=== PATIENT | female | born 1995 | race Hispanic/Latino ===

== ENCOUNTER 2016-09-20 23:59 | Observation (INO) | payer BC, OTHER ==
[2016-09-21 00:10] VITALS: TEMP 98.2
[2016-09-21] MEDS ORDERED: Sodium Chloride 0.9% 1,000 ML IV STA (00:43)
[2016-09-21 01:33] LABS: BASO % 0.3 % (0.0-2.0); EOS # 0.2 K/uL (0.0-0.7); EOS % 1.4 % (0.0-4.0); HEMATOCRIT 37.6 % (34.0-47.0); LYMPH # 2.1 K/uL (1.0-4.3); MEAN CELL VOLUME 73.6 fl (81.0-99.0); MEAN CORPUSCULAR HEMOGLOBIN 23.2 pg (27.0-31.0); MEAN CORPUSCULAR HGB CONC 31.5 g/dL (33.0-37.0); MEAN PLATELET VOLUME 8.4 fl (7.2-11.7); MONO # 0.6 K/uL (0.0-0.8); MONO % 4.1 % (0.0-10.0); NEUT # 12.2 K/uL (1.8-7.0); NEUT % 80.2 % (50.0-75.0); RED CELL DISTRIBUTION WIDTH 17.2 % (11.5-14.5); WHITE BLOOD COUNT 15.2 K/uL (4.8-10.8)
[2016-09-21 01:35] LABS: RBC URINE 1 /hpf (0-3); URINE BILIRUBIN NEGATIVE (NEGATIVE); URINE BLOOD NEGATIVE (NEGATIVE); URINE COLOR YELLOW (YELLOW); URINE GLUCOSE (UA) NEG (Normal); URINE KETONE TRACE mg/dL (NEGATIVE); URINE LEUKOCYTE ESTERASE NEG Leu/uL (Negative); URINE PROTEIN NEGATIVE (NEGATIVE); URINE UROBILINOGEN 0.2-1.0 mg/dL (0.2-1.0); WBC URINE < 1 /hpf (0-5)
[2016-09-21 01:44] LABS: ALB/GLOB RATIO 1.1 (1.0-2.1); ALKALINE PHOSPHATASE 66 U/L (38-126); ALT/SGPT 27 U/L (9-52); AST/SGOT 44 U/L (14-36); BILIRUBIN,TOTAL 0.9 mg/dl (0.2-1.3); BLOOD UREA NITROGEN 9 mg/dl (7-17); CALCIUM 9.2 mg/dL (8.4-10.2); CARBON DIOXIDE 21 mmol/L (22-30); CHLORIDE 104 mmol/L (98-107); GFR AFRICAN-AMERICAN > 60; GLUCOSE,RANDOM 89 mg/dL (65-105); LIPASE 117 U/L (23-300); SODIUM 138 mmol/l (132-148)
[2016-09-21 01:53] LABS: POTASSIUM 4.6 MMOL/L (3.6-5.0)
--- NOTE | 2016-09-21 02:10 | ED PDOC ---
HPI: General Adult Time Seen by Provider: 09/21/16 00:21 Chief Complaint (Nursing): Abdominal Pain Chief Complaint (Provider): abdominal pain, shortness of breath History Per: Patient History/Exam Limitations: no limitations Onset/Duration Of Symptoms: Hrs Current Symptoms Are (Timing): Still Present Additional History Per: Patient Additional Complaint(s): 20 y/o female history of ankylosing spondylitis, arthritis (rheumatoid?) presents for eval of abdominal pain x 4 hours. Associated "constipation", which patient describes as having multiple bowel movements of a small amount of "loose" stool. Patient notes 3 episodes of vomiting after onset of abdominal pain, with associated shortness of breath. Denies fever, chest pain, palpitations, dysuria, hematuria, vaginal bleeding/discharge, recent travel, sick contacts. Past Medical History Reviewed: Historical Data, Nursing Documentation, Vital Signs Vital Signs: Last Vital Signs Temp 98.2 F 09/21/16 00:07 Pulse 124 H 09/21/16 00:07 Resp 16 09/21/16 00:07 BP 131/81 09/21/16 00:07 Pulse Ox 100 09/21/16 03:39 - Medical History PMH: Anxiety, Arthritis - Surgical History Surgical History: No Surg Hx - Family History Family History: States: Unknown Family Hx - Living Arrangements Living Arrangements: Alone - Social History Current smoker - smoking cessation education provided: No Alcohol: Occasional Drugs: Denies - Home Medications Home Medications: Ambulatory Orders Medication Instructions Recorded Sertraline HCl [Zoloft] 25 mg PO DAILY 08/23/14 - Allergies Allergies/Adverse Reactions: Allergies Allergy/AdvReac Type Severity Reaction Status Date / Time No Known Allergies Allergy Verified 09/21/16 00:07 Review of Systems ROS Statement: Except As Marked, All Systems Reviewed And Found Negative Respiratory: Positive for: Shortness of Breath Gastrointestinal: Positive for: Nausea, Vomiting, Abdominal Pain Physical Exam - Reviewed Nursing Documentation Reviewed: Yes Vital Signs Reviewed: Yes - Physical Exam Appears: Positive for: Well, Non-toxic, No Acute Distress Head Exam: Positive for: ATRAUMATIC, NORMAL INSPECTION, NORMOCEPHALIC Skin: Positive for: Normal Color Eye Exam: Positive for: Normal appearance ENT: Positive for: Normal ENT Inspection Cardiovascular/Chest: Positive for: Regular Rate, Rhythm Respiratory: Positive for: Normal Breath Sounds Gastrointestinal/Abdominal: Positive for: Tenderness (epigastric) Back: Positive for: Normal Inspection Extremity: Positive for: Normal ROM Neurologic/Psych: Positive for: Alert, Oriented - Laboratory Results Result Diagrams: 09/21/16 01:19 09/21/16 02:32 - ECG ECG: Positive for: Viewed By Me (reviewed by ED attending) ECG Rhythm: Positive for: Sinus Tachycardia O2 Sat by Pulse Oximetry: 100 - Other Rad obstructive series X-Ray: Viewed By Me X-Ray Interpretation: + stool. nonspecific bowel/gas pattern - Progress ED Course And Treament: labs, urine, IV fluids, IV pepcid, IV zofran, obstructive series ED OBSERVATION Date of observation admission: 09/21/16 Time of observation admission: 03:00 - Observation admission statement Patient is being placed in observation because:: abdominal pain, vomiting - Goals of Observation Goals of observation are:: obtain labs, xray, re-eval - Progress Note Progress Note: 09/21/16 03:30 On re-eval, patient notes little improvement with pain. CT abd/pelvis ordered 09/21/16 05:30 Patient resting comfortably; awaiting CT scan Disposition - Clinical Impression Clinical Impression: Abdominal pain - Disposition Disposition: Transfer of Care Disposition Time: 06:00 Condition: STABLE Patient Signed Over To: Mark Palomino Handoff Comments: pending CT
[2016-09-21 03:02] LABS: CHLORIDE 108 mmol/L (98-107); SODIUM 140 mmol/l (132-148)
[2016-09-21 03:03] LABS: POTASSIUM 3.7 MMOL/L (3.6-5.0)
[2016-09-21 03:05] LABS: ALKALINE PHOSPHATASE 70 U/L (38-126); ALT/SGPT 28 U/L (9-52); AST/SGOT 21 U/L (14-36); BILIRUBIN,TOTAL 0.7 mg/dl (0.2-1.3); BLOOD UREA NITROGEN 8 mg/dl (7-17); CARBON DIOXIDE 19 mmol/L (22-30); GFR AFRICAN-AMERICAN > 60; GLUCOSE,RANDOM 81 mg/dL (65-105); TOTAL PROTEIN 8.6 G/DL (6.3-8.2)
[2016-09-21 03:06] LABS: CALCIUM 9.4 mg/dL (8.4-10.2)
[2016-09-21 03:09] LABS: ALB/GLOB RATIO 1.2 (1.0-2.1)
[2016-09-21 03:22] LABS: PARTIAL THROMBOPLASTIN TIME 28.6 SECONDS (23.3-32.5)
[2016-09-21] MEDS ORDERED: Iohexol 240 (50 ml) PO ONE (03:35)
[2016-09-21] MEDS ORDERED: Iohexol 240 (50 ml) ONE (04:27)
--- NOTE | 2016-09-21 05:50 | ED PDOC ---
- Laboratory Results Result Diagrams: 09/21/16 01:19 09/21/16 02:32 - ECG O2 Sat by Pulse Oximetry: 100 Medical Decision Making Medical Decision Making: Patient s/o from [facility] at [address] Patient s/o to Dr. Ndiaye at [address] Scribe Attestation: Documented by Jennifer Perea acting as a scribe for Mark Palomino MD. Provider Scribe Attestation: All medical record entries made by the Scribe were at my direction and personally dictated by me. I have reviewed the chart and agree that the record accurately reflects my personal performance of the history, physical exam, medical decision making, and the department course for this patient. I have also personally directed, reviewed, and agree with the discharge instructions and disposition. Disposition - Clinical Impression Clinical Impression: Abdominal pain, Dehydration, Vomiting - POA Present On Arrival: None - Disposition Disposition: Transfer of Care Disposition Time: 07:00 Condition: STABLE Patient Signed Over To: Colt Ndiaye III Handoff Comments: pending CT
[2016-09-21] MEDS ORDERED: Iodixanol 320 MG/ML 100 ML BOTTLE IV ONE (06:27)
[2016-09-21] MEDS ORDERED: Sodium Chloride 0.9% 50 ML IV ONE (06:27)
--- NOTE | 2016-09-21 07:05 | ED PDOC ---
"- Laboratory Results Result Diagrams: 09/21/16 01:19 09/21/16 02:32 - ECG O2 Sat by Pulse Oximetry: 100 Pulse Ox Interpretation: Normal Medical Decision Making Medical Decision Making: Time: 0700 Patient signed out by Dr. Palomino pending CT FINDINGS: ABDOMEN: Liver: Unremarkable. No mass. Gallbladder and bile ducts: Unremarkable. No calcified stones. No ductal dilation. Pancreas: Unremarkable. No mass. No ductal dilation. Spleen: The spleen is mildly prominent in size. There is no focal splenic lesion. Adrenals: Unremarkable. No mass. Kidneys and ureters: Unremarkable. No solid mass. No hydronephrosis. Stomach and bowel: Unremarkable. No obstruction. No mucosal thickening. Appendix: The appendix is not visualized with certainty. There is no kacy pericecal inflammation or or pericecal fluid collection to suggest appendicitis. (Please note that acute appendicitis cannot be completely excluded without the visualization of a normal appendix). PELVIS: KRUPA MARCANO | Preliminary Radiology Report MANUFACTURING SALES REPRESENTATIVE (QA) DISCREPANCY? If there is a discrepancy between the preliminary and final interpretation, please notify [facility] via [email or web address]. If you do not have access to our QA portal, call our QA team at [phone] CONFIDENTIALITY STATEMENT This report is intended only for the use of the referring physician, and only in accordance with law, If you received this in error, call [phone] Page 2 of 2 Bladder: The bladder is moderately distended. Reproductive: Unremarkable as visualized. ABDOMEN and PELVIS: Intraperitoneal space: Unremarkable. No free air. No significant fluid collection. Vasculature: Unremarkable. No abdominal aortic aneurysm. Lymph nodes: There are multiple small nonspecific lymph nodes in the mesenteric fat. IMPRESSION: 1. The bladder is moderately distended. 2. There are multiple small nonspecific lymph nodes in the mesenteric fat. This has indeterminate clinical significance and may represent mesenteric adenitis. 3. The spleen is mildly prominent in size. There is no focal splenic lesion. Thank you for allowing us to participate in the care of your patient. Dictated and Authenticated by: Truong Louie MD 09/21/2016 7:23 AM Eastern Time ([place] & [place]) Patient denies RLQ pain. Tachycardia has resolved. No vomiting, tolerating fluids. Pt wishes to go home. HAMZAH randall and magdalene. Return to ER for any development of pain, weakness, fever, return vomiting or any concern. Scribe Attestation: Documented by More Paredes acting as a scribe for Colt Ndiaye DO MD Scribe Attestation: All medical record entries made by the Scribe were at my direction and personally dictated by me. I have reviewed the chart and agree that the record accurately reflects my personal performance of the history, physical exam, medical decision making, and the department course for this patient. I have also personally directed, reviewed, and agree with the discharge instructions and disposition. Disposition Counseled Patient/Family Regarding: Studies Performed, Diagnosis, Need For Followup, Rx Given - Clinical Impression Clinical Impression: Abdominal pain, Dehydration, Vomiting - POA Present On Arrival: None - Disposition Disposition: Routine/Home Disposition Time: 07:27 Condition: STABLE"
[2016-09-21 07:57] VITALS: BP 129/66; PULSE 94; RESP 18
[2016-09-21 08:18] VITALS: O2SAT 100
--- NOTE | 2016-09-21 10:38 | RAD ---
PROCEDURE: Radiographs of the chest and abdomen (obstructive series) HISTORY: abd pain, bloating, sob COMPARISON: No prior. TECHNIQUE: AP radiograph of the chest, with upright and supine radiographs of the abdomen. FINDINGS: CHEST: Lungs: Clear. Cardiovascular: Normal size heart. No pulmonary vascular congestion. Pleura: No pleural fluid. No pneumothorax. Other findings: None. ABDOMEN AND PELVIS: Bowel: Unremarkable bowel gas pattern. No evidence of mechanical obstruction. Free air: None. Bones: Unremarkable. Other findings: None. IMPRESSION: Unremarkable radiographs of chest and abdomen. No evidence of mechanical bowel obstruction.
--- NOTE | 2016-09-21 11:30 | CT ---
PROCEDURE: CT Abdomen and Pelvis with contrast HISTORY: Abdominal pain, vomiting. COMPARISON: None. TECHNIQUE: Contrast dose: 95 cc Omnipaque 300. Radiation dose: Total exam DLP = 927.71 mGy-cm. This CT exam was performed using one or more of the following dose reduction techniques: Automated exposure control, adjustment of the mA and/or kV according to patient size, and/or use of iterative reconstruction technique. FINDINGS: LOWER THORAX: Unremarkable. LIVER: Hepatic steatosis. No focal masses. No intrahepatic bile duct dilatation or perihepatic ascites. GALLBLADDER AND BILE DUCTS: Unremarkable. PANCREAS: Unremarkable. No gross lesion or ductal dilatation. SPLEEN: Unremarkable. ADRENALS: Unremarkable. No mass. KIDNEYS AND URETERS: Unremarkable. No hydronephrosis. No solid mass. VASCULATURE: Unremarkable. No aortic aneurysm. BOWEL: Unremarkable. No obstruction. No gross mural thickening. APPENDIX: No abnormalities to suggest acute appendicitis. No right lower quadrant inflammatory processes identified. PERITONEUM: Unremarkable. No free fluid. No free air. LYMPH NODES: Unremarkable. No enlarged lymph nodes. BLADDER: Unremarkable. REPRODUCTIVE: Unremarkable. BONES: No acute fracture. OTHER FINDINGS: None. IMPRESSION: No acute findings related to/accounting for the clinical presentation. Additional benign and/or incidental findings described above. Concordant results (preliminary interpretation) provided by [facility]. Procedure Completed: 06:41. Preliminary ([facility]) Report: Dictated and Authenticated: 07:23. Final Interpretation: 11:29. September 21, 2016.
== END 2016-09-21 07:28 | disposition home or self-care (01) ==
LOC: H.ER 23:59 → H.EROBSV 09-21 03:00
PROVIDERS: ADMIT Emergency Medicine; ATTEND Emergency Medicine
DX: R10.9 Unspecified abdominal pain (principal); E86.0 Dehydration; R11.11 Vomiting without nausea
CPT/HCPCS: 74022; 74177; 80053; 81003; 81025; 83690; 84443; 84484; 85025; 85378; 85610; 85730; 96374; 96375; 99282; G0378; J2405; J7040; Q9966; Q9967

== ENCOUNTER 2018-01-03 17:23 | Emergency (ER) | payer BC, OTHER ==
[2018-01-03 17:37] VITALS: BP 130/85; TEMP 98.9; O2SAT 100
--- NOTE | 2018-01-03 19:57 | ED PDOC ---
HPI: General Adult Time Seen by Provider: 01/03/18 18:00 Chief Complaint (Nursing): Weakness/Neurological Deficit History Per: Patient, Other (Good (friend)) Additional Complaint(s): Pt. states today she an episode of "fogginess." States this occurred 3 times today. Reports that she's had similar symptoms in the past but has never been this severe. Pt. states she is conscious during these episodes but feel as if she cannot control her body. Describes it as feeling "stuck." States her eyes twitch very fast. Also states that symptoms resolve gradually and at this time symptoms are still present but have improved. As per his pt.'s friend (Good), he witnessed the event and states that pt. attempts to move but is unable. Also states pt. is able to answer questions appropriately and that pt. is conscious during this and pt. experiences no tonic clonic movements. Of note, pt. has a hx of anxiety and has been treated for anxiety in the past but is not currently on treatment. Also reports that she is currently being treated for ongoing dyspnea. 3 weeks ago she had an echocardiogram which was normal and yesterday she had a CXR but is uncertain of results. Pt. further reports she was given Humira for her ankylosing spondylitis for the first time yesterday. Denies hx of DVT or PE, hormonal therapy, prolonged limb immobilization, chest pain, headache, fever, weakness, SI/HI, hallucinations. Pt. reports no recent stressors. Of note, pt. states she has a hx of elevated HR. Past Medical History Reviewed: Historical Data, Nursing Documentation, Vital Signs Vital Signs: Last Vital Signs Temp 98.9 F 01/03/18 17:31 Pulse 112 H 01/03/18 18:06 Resp 19 01/03/18 18:06 BP 130/85 01/03/18 17:31 Pulse Ox 100 01/03/18 18:06 - Medical History PMH: Anxiety, Arthritis - Surgical History Surgical History: No Surg Hx - Family History Family History: States: No Known Family Hx - Home Medications Home Medications: Ambulatory Orders Medication Instructions Recorded Sertraline HCl [Zoloft] 25 mg PO DAILY 08/23/14 Dicyclomine [Dicyclomine HCl] 10 mg PO TID PRN #10 cap 09/21/16 Ondansetron [Zofran] 4 mg PO Q6H PRN #10 tab 09/21/16 traMADol [Ultram] 50 mg PO TID PRN #12 tab 09/21/16 - Allergies Allergies/Adverse Reactions: Allergies Allergy/AdvReac Type Severity Reaction Status Date / Time gluten AdvReac VOMITING Verified 01/03/18 17:31 Review of Systems ROS Statement: Except As Marked, All Systems Reviewed And Found Negative Cardiovascular: Positive for: Palpitations Respiratory: Positive for: Shortness of Breath Physical Exam - Reviewed Nursing Documentation Reviewed: Yes Vital Signs Reviewed: Yes - Physical Exam Appears: Positive for: Well, Non-toxic, No Acute Distress Head Exam: Positive for: ATRAUMATIC, NORMAL INSPECTION, NORMOCEPHALIC Skin: Positive for: Normal Color, Warm. Negative for: Rash Eye Exam: Positive for: EOMI, Normal appearance, PERRL ENT: Positive for: Normal ENT Inspection Neck: Positive for: Normal, Painless ROM Cardiovascular/Chest: Negative for: Murmur, Tachycardia, Irregularly Irregular Respiratory: Positive for: Normal Breath Sounds. Negative for: Respiratory Distress Gastrointestinal/Abdominal: Positive for: Normal Exam, Soft. Negative for: Tenderness Back: Positive for: Normal Inspection Extremity: Positive for: Normal ROM Neurologic/Psych: Positive for: Alert, Oriented (x3), Mood/Affect (appears anxious). Negative for: Aphasia, Facial Droop - ECG ECG: Positive for: Interpreted By Me ECG Rhythm: Positive for: Sinus Tachycardia. Negative for: ST/T Changes Rate: 118 O2 Sat by Pulse Oximetry: 100 - Radiology X-Ray: Interpreted by Me (CXR) - Progress ED Course And Treament: Labs, CT head w/o contrast, CXR, EKG ordered. Xanax 0.5mg PO ordered. Pt placed on emt intermediate. Disposition - Clinical Impression Clinical Impression: Tachycardia, Altered mental status - Patient ED Disposition Is Patient to be Admitted: Transfer of Care (Signed out to Karin PAN pending lab results, CT results, and disposition) - Disposition Disposition Time: 20:00 Condition: STABLE
--- NOTE | 2018-01-03 20:20 | ED PDOC ---
- Laboratory Results Result Diagrams: 01/03/18 19:40 01/03/18 19:40 Urine POC: Negative - ECG O2 Sat by Pulse Oximetry: 100 (RA) Pulse Ox Interpretation: Normal Medical Decision Making Medical Decision Making: Case endorsed to flex o writer operator, Karin PAN, at 1999 due to shift change. Pertinent details reviewed. Patient pending lab results, CT evaluation, and re-evaluation/ further disposition. CXR and EKG reviewed. Repeat HR: 118. Patient reports a history of tachycardia and her HR normally runs 95-140bpm. 2054 CT reviewed, radiology report follows EXAM: CT Head Without Intravenous Contrast EXAM DATE/TIME: 01/03/2018 6:51 PM CLINICAL HISTORY: 22 years old, female; Signs and symptoms; Altered mental status/memory loss; Other: Weakness; Additional info: AMS TECHNIQUE: Axial computed tomography images of the head/brain without intravenous contrast. All CT scans at this facility use at least one of these dose optimization techniques: automated exposure control; mA and/or kV adjustment per patient size (includes targeted exams where dose is matched to clinical indication); or iterative reconstruction. Coronal and sagittal reformatted images were created and reviewed. COMPARISON: No relevant prior studies available. FINDINGS: Brain: Minimal atrophy. No intracranial hemorrhage. No mass. No definite edema. Ventricles: No hydrocephalus. Bones/joints: No acute fracture. Sinuses: Small RIGHT sphenoid retention cyst. Mastoid air cells: No significant effusion. Orbits: Unremarkable as visualized. Soft tissues: Unremarkable. IMPRESSION: No definite acute intracranial abnormality. Thank you for allowing us to participate in the care of your patient. Dictated and Authenticated by: Chriss Zamora MD 01/03/2018 8:19 PM Eastern Time ([place] & [place]) Pending lab results. 2229 CBC and CMP grossly unremarkable. TSH: WNL D-Dimer: 379 Repeat HR: 106 Results discussed with patient. Risks and Benefits of CTA chest evaluation discussed with patient. 2319 Patient opted to follow up outpatient as these symptoms have been an ongoing issue and that her HR is normally elevated at baseline. Patient requesting discharge home at his time. On re-evaluation, patient reports improvement of symptoms. On exam, patient remains AAOx3, in no acute distress. Lungs clear to auscultation, cardiac RRR, abdomen soft, non-tender, repeat neuro exam shows no focal findings. VSS, stable for discharge. Lab/Diagnostic results d/w the patient in great detail. Diagnosis of tachycardia , anxiety d/w the patient. Based on history, exam and diagnostic results, plan will be for outpatient follow up . Patient instructed to follow-up with pmd / referral provided / the clinic in 1- 2 days without fail. Return to the emergency room at any time for any new or worsening symptoms. Patient states she fully agrees with and understands discharge instructions. States that she agrees with the plan and disposition. Verbalized and repeated discharge instructions and plan. I have given the patient opportunity to ask any additional questions. Disposition Counseled Patient/Family Regarding: Studies Performed, Diagnosis, Need For Followup - Clinical Impression Clinical Impression: Tachycardia, Altered mental status, Anxiety - POA Present On Arrival: None - Disposition Referrals: Yehuda Jensen MD [Medical Doctor] - Disposition: Routine/Home Disposition Time: 23:22 Condition: STABLE Additional Instructions: The emergency medical care you received today was directed towards the acute presenting symptoms. If you were prescribed any medication, please fill it and give as directed. It may take several days for your symptoms to resolve. Return to the Emergency Department at any time if symptoms worsen, do not improve, or if any other problems arise. Please contact your doctor in 2 days for re-evaluation and follow up / or call one of the physicians/clinics you have been referred to that are listed on the Patient Visit Information form that is included in your discharge packet. Bring any paperwork you were given at discharge with you along with any medications to your follow up visit. Our treatment cannot replace ongoing medical care by a primary care provider (PCP) outside of the emergency department. Instructions: Altered Mental Status, Anxiety, Adult (DC), Tachycardia (DC) Forms: [employer] (Khmer) Print Language: HUNGARIAN Results - Lab Results Lab Results: 01/03/18 01/03/18 01/03/18 19:40 19:40 19:40 WBC 12.5 H RBC 4.76 Hgb 12.0 Hct 37.6 MCV 79.1 L D MCH 25.1 L MCHC 31.8 L RDW 15.5 H Plt Count 185 D MPV 9.1 Neut % (Auto) 73.1 Lymph % (Auto) 20.3 Pershing % (Auto) 5.3 Eos % (Auto) 1.0 Baso % (Auto) 0.3 Neut # (Auto) 9.1 H Lymph # (Auto) 2.5 Pershing # (Auto) 0.7 Eos # (Auto) 0.1 Baso # (Auto) 0.0 D-Dimer, Quantitative 379 H Sodium 138 Potassium 4.8 Chloride 104 Carbon Dioxide 20 L Anion Gap 19 BUN 15 Creatinine 0.4 L Est GFR ( Amer) > 60 Est GFR (Non-Af Amer) > 60 Random Glucose 93 Calcium 9.2 Total Bilirubin 1.2 AST 63 H ALT 13 Alkaline Phosphatase 72 Total Protein 8.6 H Albumin 4.4 Globulin 4.3 H Albumin/Globulin Ratio 1.0 TSH 3rd Generation 1.03
[2018-01-03 21:24] LABS: BASO % 0.3 % (0.0-2.0); EOS # 0.1 K/uL (0.0-0.7); LYMPH # 2.5 K/uL (1.0-4.3); LYMPH % 20.3 % (20.0-40.0); MEAN CELL VOLUME 79.1 fl (81.0-99.0); MEAN CORPUSCULAR HEMOGLOBIN 25.1 pg (27.0-31.0); MEAN CORPUSCULAR HGB CONC 31.8 g/dL (33.0-37.0); MEAN PLATELET VOLUME 9.1 fl (7.2-11.7); MONO # 0.7 K/uL (0.0-0.8); MONO % 5.3 % (0.0-10.0); NEUT # 9.1 K/uL (1.8-7.0); NEUT % 73.1 % (50.0-75.0); NRBC % 0.1 % (0.0-0.0); RBC 4.76 Mil/uL (3.80-5.20); RED CELL DISTRIBUTION WIDTH 15.5 % (11.5-14.5); WHITE BLOOD COUNT 12.5 K/uL (4.8-10.8)
[2018-01-03 21:25] LABS: BLOOD UREA NITROGEN 15 mg/dl (7-17); CALCIUM 9.2 mg/dL (8.4-10.2); GFR NON-AFRICAN AMERICAN > 60
[2018-01-03 21:29] LABS: ALBUMIN 4.4 g/dL (3.5-5.0); ALT/SGPT 13 U/L (9-52); AST/SGOT 63 U/L (14-36)
[2018-01-03 22:28] VITALS: PULSE 106; RESP 17
--- NOTE | 2018-01-04 08:50 | CARD ---
APPROVED REPORT Date of service: 01/03/2018 <Conclusion> Sinus tachycardia Otherwise normal ECG
--- NOTE | 2018-01-04 08:51 | RAD ---
Date of service: 01/03/2018 HISTORY: SOB COMPARISON: Abdomen obstructive series 09/21/2016. FINDINGS: LUNGS: No active pulmonary disease. PLEURA: No significant pleural effusion identified, no pneumothorax apparent. CARDIOVASCULAR: Normal. OSSEOUS STRUCTURES: No significant abnormalities. VISUALIZED UPPER ABDOMEN: Normal. OTHER FINDINGS: None. IMPRESSION: No interval acute cardiopulmonary disease appreciated.
--- NOTE | 2018-01-04 11:08 | CT ---
Date of service: 01/03/2018 PROCEDURE: CT HEAD WITHOUT CONTRAST. HISTORY: AMS COMPARISON: None available. TECHNIQUE: Axial computed tomography images were obtained through the head/brain without intravenous contrast. Radiation dose: Total exam DLP = 818.84 mGy-cm. This CT exam was performed using one or more of the following dose reduction techniques: Automated exposure control, adjustment of the mA and/or kV according to patient size, and/or use of iterative reconstruction technique. FINDINGS: HEMORRHAGE: No intracranial hemorrhage. BRAIN: Normal rodriguez-white matter differentiation and density are appreciated throughout the cerebrum and cerebellum with the brainstem appearing unremarkable as well. There is no mass effect. There is no suspicious extra-axial fluid collection and the midline brain anatomy appears diffusely unremarkable. VENTRICLES: Unremarkable. No hydrocephalus. CALVARIUM: Unremarkable. PARANASAL SINUSES: Unremarkable as visualized. No significant inflammatory changes. MASTOID AIR CELLS: Unremarkable as visualized. No inflammatory changes. OTHER FINDINGS: None. IMPRESSION: Unremarkable noncontrast CT of the Head. Concordant preliminary report from [facility], 01/03/2018.
== END 2018-01-04 | disposition home or self-care (01) ==
LOC: H.ER 17:23
DX: R41.82 Altered mental status, unspecified (principal); F41.9 Anxiety disorder, unspecified; R00.0 Tachycardia, unspecified

== ENCOUNTER 2018-01-08 07:30 | Emergency (ER) | payer OTHER ==
[2018-01-08 07:37] VITALS: BP 113/74; PULSE 95; RESP 18; TEMP 98.7; O2SAT 100
--- NOTE | 2018-01-08 09:08 | ED PDOC ---
Lower Extremity Pain/Injury Time Seen by Provider: 01/08/18 07:56 Chief Complaint (Nursing): Lower Extremity Problem/Injury Chief Complaint (Provider): left ankle injury History Per: Patient History/Exam Limitations: no limitations Onset/Duration Of Symptoms: Hrs (this morning) Current Symptoms Are (Timing): Still Present Additional Complaint(s): Krupa Dugan is a 22 year old female, with no significant past medical history, who was brought to the emergency department by EMS for left ankle pain onset this morning. Patient states she just stood up from bed when she felt her ankle give up. Ankle became painful and swollen prompting ED visit. Patient reports her joints displace all the time but this time it didn't go back in place. She took Advil for pain. She denies any other injuries or medical complaints. PMD: BETTY Nevarez Past Medical History Reviewed: Historical Data, Nursing Documentation, Vital Signs Vital Signs: Last Vital Signs Temp 98.7 F 01/08/18 07:36 Pulse 95 H 01/08/18 07:36 Resp 18 01/08/18 07:36 BP 113/74 01/08/18 07:36 Pulse Ox 100 01/08/18 07:36 - Medical History PMH: Anxiety, Arthritis - Surgical History Surgical History: No Surg Hx - Family History Family History: States: Unknown Family Hx - Home Medications Home Medications: Ambulatory Orders Medication Instructions Recorded Sertraline HCl [Zoloft] 25 mg PO DAILY 08/23/14 Dicyclomine [Dicyclomine HCl] 10 mg PO TID PRN #10 cap 09/21/16 Ondansetron [Zofran] 4 mg PO Q6H PRN #10 tab 09/21/16 traMADol [Ultram] 50 mg PO TID PRN #12 tab 09/21/16 - Allergies Allergies/Adverse Reactions: Allergies Allergy/AdvReac Type Severity Reaction Status Date / Time gluten AdvReac VOMITING Verified 01/08/18 07:45 Review of Systems ROS Statement: Except As Marked, All Systems Reviewed And Found Negative Musculoskeletal: Positive for: Foot Pain (left ankle) Physical Exam - Reviewed Nursing Documentation Reviewed: Yes Vital Signs Reviewed: Yes - Physical Exam Appears: Positive for: No Acute Distress (playing on her cellphone) Head Exam: Positive for: ATRAUMATIC, NORMOCEPHALIC Skin: Positive for: Normal Color, Warm, Dry Eye Exam: Positive for: Normal appearance Neck: Positive for: Painless ROM Extremity: Positive for: Tenderness (Mild tenderness to left lateral malleolus) , Swelling (left lateral malleolus). Negative for: Normal ROM (Limited ROM secondary to ankle pain), Deformity Neurologic/Psych: Positive for: Alert, Oriented. Negative for: Motor/Sensory Deficits - ECG O2 Sat by Pulse Oximetry: 100 (RA) Pulse Ox Interpretation: Normal Medical Decision Making Medical Decision Making: Time: 07:56 Initial impression: Left ankle injury, sprain vs fracture vs dislocation Initial Plan: --Ankle left 3 views routine [RAD] --Reevaluation 09:24 Ankle x-ray FINDINGS: BONES: Bone alignment and mineralization are normal. There is no acute displaced fracture or bone destruction. JOINTS: Normal. Ankle mortise maintained. Talar dome intact SOFT TISSUES: There is moderate lateral soft tissue swelling. OTHER FINDINGS: None. IMPRESSION: No acute fracture or dislocation. Moderate lateral soft tissue swelling. 1000 Aircast applied. Crutches training WB given. ----- Scribe Attestation: Documented by Gilles Williamson, acting as a scribe for Zee Tobar MD. Provider Scribe Attestation: All medical record entries made by the Scribe were at my direction and personally dictated by me. I have reviewed the chart and agree that the record accurately reflects my personal performance of the history, physical exam, medical decision making, and the department course for this patient. I have also personally directed, reviewed, and agree with the discharge instructions and disposition. Disposition - Clinical Impression Clinical Impression: Ankle injury - Patient ED Disposition Is Patient to be Admitted: No Doctor Will See Patient In The: Office Counseled Patient/Family Regarding: Studies Performed, Diagnosis, Need For Followup - Disposition Referrals: Podiatry Clinic [Outside] Jose Ramon Craft MD [Staff Provider] - Disposition: Routine/Home Disposition Time: 11:00 Condition: GOOD Additional Instructions: KRUPA DUGAN, thank you for letting us take care of you today. Your provider was Zee Tobar MD and you were treated for WEAKNESS. The emergency medical care you received today was directed at your acute symptoms. If you were prescribed any medication, please fill it and take as directed. It may take several days for your symptoms to resolve. Return to the Emergency Department if your symptoms worsen, do not improve, or if you have any other problems. Please contact your doctor or call one of the physicians/clinics you have been referred to that are listed on the Patient Visit Information form that is included in your discharge packet. Bring any paperwork you were given at discharge with you along with any medications you are taking to your follow up visit. Our treatment cannot replace ongoing medical care by a primary care provider outside of the emergency department. Thank you for allowing the [facility] team to be part of your care today. If you had an X-Ray or CT scan: A Radiologist will review the ED reading if any change in treatment is needed we will contact you. If you had a blood, urine, or wound culture: It will take several days for the results, if any change in treatment is needed we will contact you. If you had an STI test: It will take 48 hours for the results. Please call after 1 week if you have not heard back. Instructions: Ankle Sprain Forms: [facility] ED School/Work Excuse
--- NOTE | 2018-01-08 09:27 | RAD ---
Date of service: 01/08/2018 PROCEDURE: Left Ankle Radiographs. HISTORY: Injury COMPARISON: None FINDINGS: BONES: Bone alignment and mineralization are normal. There is no acute displaced fracture or bone destruction. JOINTS: Normal. Ankle mortise maintained. Talar dome intact SOFT TISSUES: There is moderate lateral soft tissue swelling. OTHER FINDINGS: None. IMPRESSION: No acute fracture or dislocation. Moderate lateral soft tissue swelling.
== END 2018-01-08 12:23 | disposition home or self-care (01) ==
LOC: H.ER 07:30
DX: S99.912A Unspecified injury of left ankle, initial encounter (principal); X50.9XXA Other and unspecified overexertion or strenuous movements or postures, initial encounter; Y92.89 Other specified places as the place of occurrence of the external cause; F41.9 Anxiety disorder, unspecified